=== PATIENT | female | born 1940 | race African-American/Black ===

== ENCOUNTER 2017-04-04 13:46 | Inpatient (IN) | payer MEDICARE, OTHER ==
[~2017-04-04] VITALS: Ht 154.9 cm; Wt 61.2 kg
[~2017-04-04 13:46] MED LIST: AMIO200T PO; BENA40TA3 PO; CARV6.2548 PO; FURO40TA5 PO; HYDR100T26 PO
[2017-04-04] MEDS ORDERED: FUROSEMIDE 40MG/4ML VIAL IV STA (15:47)
[2017-04-04] MEDS ORDERED: NITROGLYCERIN OINT 1GM/INCH UDPKT TD STA (15:47)
[2017-04-04] MEDS ORDERED: ASPIRIN 81MG TABLET PO STA (15:47)
[2017-04-04 16:14] LABS: HEMATOCRIT. 31.6 % (36.0-48.0); HEMOGLOBIN. 10.1 g/dL (12.0-16.0); MEAN CORPUSCULAR HEMOGLOBIN 24.7 pg (28.0-32.0); MEAN CORPUSCULAR VOLUME 77.2 fL (81.0-99.0); MEAN PLATELET VOLUME 7.8 fl (7.4-10.4); PLATELET 312 x1000/uL (130-400); RED BLOOD CELL COUNT 4.09 mill/uL (4.2-5.4); RED CELL DISTRIBUTION WIDTH 21.5 % (11.6-14.6)
[2017-04-04 16:16] LABS: CHLORIDE 107 mEq/L (98-107)
[2017-04-04 16:19] LABS: INR 1.2; PARTIAL THROMBOPLASTIN TIME 28.5 sec (23.4-31.0); PROTHROMBIN TIME 12.8 sec (9.4-11.6)
[2017-04-04 16:26] LABS: CARBON DIOXIDE 27 mEq/L (21-32); TROPONIN I 0.04 ng/mL (0.00-0.04)
[2017-04-04] MEDS ORDERED: POTASSIUM CHLORIDE 20MEQ TABLET SR PO ONE (16:30)
[2017-04-04 16:49] LABS: PLATELET ESTIMATE NORMAL
[2017-04-04] MEDS ORDERED: IPRATROPIUM/ALBUTEROL 0.5-3(2.5)MG/3ML NEB INH PRN (19:30)
[2017-04-04] MEDS ORDERED: ONDANSETRON HCL 4MG/2ML VIAL IV PRN (19:30)
[2017-04-04] MEDS ORDERED: DOCUSATE SODIUM 100MG CAPSULE PO PRN (19:30)
[2017-04-04] MEDS ORDERED: MAGNESIUM/ALUMINUM HYDROXIDE/SIMETHICONE 30ML UDC PO PRN (19:30)
[2017-04-04] MEDS ORDERED: ACETAMINOPHEN 325MG TABLET PO PRN (19:30)
[2017-04-04] MEDS ORDERED: CLONIDINE 0.1MG TABLET PO PRN (19:30)
[2017-04-04] MEDS ORDERED: CLONIDINE 0.1MG TABLET PO ONE (19:45)
[2017-04-04 22:05] VITALS: BP 173/104
[2017-04-04] MEDS ORDERED: ENOXAPARIN 30MG/0.3ML SYR SUBCUT SCH (23:30)
[2017-04-05] VITALS (7 sets, daily range): BP systolic 138–167; BP diastolic 88–98
[2017-04-05 00:31] LABS: CLARITY URINE CLEAR (CLEAR); COLOR URINE YELLOW (YELLOW); GLUCOSE URINE NEGATIVE (NEGATIVE); KETONES URINE NEGATIVE (NEGATIVE); LEUKOCYTE ESTERASE URINE NEGATIVE (NEGATIVE); NITRITE URINE NEGATIVE (NEGATIVE); OCCULT BLOOD URINE NEGATIVE (NEGATIVE); PH URINE 5.5 (4.5-8.0); PROTEIN URINE NEGATIVE (NEGATIVE); UROBILINOGEN URINE 0.2 E.U./dL (0.2-1.0)
[2017-04-05 00:44] LABS: *AMPHETAMINES SCREEN URINE NEGATIVE (NEGATIVE); *BARBITURATES SCREEN URINE NEGATIVE (NEGATIVE); *BENZODIAZEPINES SCREEN URINE NEGATIVE (NEGATIVE); *COCAINE SCREEN URINE NEGATIVE (NEGATIVE); CANNABINOID URINE SCREEN NEGATIVE (NEGATIVE); METHADONE URINE SCREEN NEGATIVE (NEGATIVE); OPIATES URINE SCREEN NEGATIVE (NEGATIVE); PHENCYCLIDINE URINE SCREEN NEGATIVE (NEGATIVE)
[2017-04-05] MEDS ORDERED: APIX2.5T PO (01:15)
[2017-04-05] MEDS ORDERED: ISOS20TA57 PO (01:15)
[2017-04-05] MEDS ORDERED: LEVO25TA7 PO (01:15)
[2017-04-05] MEDS ORDERED: POTA10CA42 PO (01:15)
[2017-04-05] MEDS ORDERED: DEXTROSE 50% WATER 50ML SYRINGE IV PRN (04:15)
[2017-04-05 07:22] LABS: HEMATOCRIT. 28.2 % (36.0-48.0); HEMOGLOBIN. 9.1 g/dL (12.0-16.0); MEAN CORPUSCULAR VOLUME 76.9 fL (81.0-99.0); PLATELET 268 x1000/uL (130-400); RED BLOOD CELL COUNT 3.66 mill/uL (4.2-5.4); RED CELL DISTRIBUTION WIDTH 21.6 % (11.6-14.6)
[2017-04-05] MEDS: INSULIN LISPRO 100 UNITS/ML SUBCUT SCH ×4 (07:50→21:00)
[2017-04-05 07:53] LABS: CREATINE KINASE MB FRACTION 0.9 ng/mL (0.5-3.6); TROPONIN I 0.03 ng/mL (0.00-0.04)
[2017-04-05] MEDS: BLOOD SUGAR DIAGNOSTIC STRIP TEST SCH ×4 (08:11→21:00)
[2017-04-05] MEDS: FUROSEMIDE 40MG/4ML VIAL IV SCH ×2 (08:35→17:34)
[2017-04-05] MEDS ORDERED: POTASSIUM CHLORIDE 20MEQ TABLET SR PO NR (11:30)
[2017-04-05] MEDS: BENAZEPRIL 20MG TABLET PO SCH (12:32)
[2017-04-05] MEDS: AMIODARONE HCL 200 MG TABLET PO SCH (12:33)
[2017-04-05] MEDS: LEVOTHYROXINE SODIUM 25MCG TABLET PO SCH (12:33)
[2017-04-05] MEDS: ISOSORBIDE DINITRATE 20MG TABLET PO SCH ×2 (15:05→17:34)
[2017-04-05] MEDS: HYDRALAZINE HCL 10MG TABLET PO SCH ×2 (15:05→21:10)
[2017-04-05] MEDS: APIXABAN 2.5 MG TABLET PO SCH (17:34)
[2017-04-05 17:45] LABS: PLATELET ESTIMATE NORMAL
[2017-04-05] MEDS: CARVEDILOL 6.25 MG TABLET PO SCH (21:00)
[2017-04-06] VITALS: BP 164/96
[2017-04-06 04:00] VITALS: BP 166/102
[2017-04-06] MEDS: FUROSEMIDE 40MG/4ML VIAL IV SCH ×2 (06:26→18:35)
[2017-04-06] MEDS: LEVOTHYROXINE SODIUM 25MCG TABLET PO SCH (06:27)
[2017-04-06] MEDS: HYDRALAZINE HCL 10MG TABLET PO SCH (06:27)
[2017-04-06] MEDS: BLOOD SUGAR DIAGNOSTIC STRIP TEST SCH ×4 (06:27→21:00)
[2017-04-06 06:51] LABS: BASOPHILS % 0.6 % (0.0-2.0); EOSINOPHILS % 0.5 % (0.0-5.0); HEMATOCRIT. 28.4 % (36.0-48.0); HEMOGLOBIN. 9.2 g/dL (12.0-16.0); LYMPHOCYTES % 13.4 % (20.0-50.0); MEAN CORPUSCULAR HEMOGLOBIN 24.9 pg (28.0-32.0); MEAN PLATELET VOLUME 7.7 fl (7.4-10.4); MONOCYTES % 9.4 % (2.0-8.0); NEUTROPHILS % 76.1 % (40.0-76.0); PLATELET 249 x1000/uL (130-400); RED BLOOD CELL COUNT 3.69 mill/uL (4.2-5.4); RED CELL DISTRIBUTION WIDTH 21.5 % (11.6-14.6)
[2017-04-06] MEDS: INSULIN LISPRO 100 UNITS/ML SUBCUT SCH ×4 (07:50→21:00)
[2017-04-06 08:00] VITALS: BP 155/89
[2017-04-06] MEDS: BENAZEPRIL 20MG TABLET PO SCH (09:00)
[2017-04-06] MEDS: AMIODARONE HCL 200 MG TABLET PO SCH (09:38)
[2017-04-06] MEDS: CARVEDILOL 6.25 MG TABLET PO SCH (09:39)
[2017-04-06] MEDS: APIXABAN 2.5 MG TABLET PO SCH ×2 (09:39→18:35)
[2017-04-06] MEDS: ISOSORBIDE DINITRATE 20MG TABLET PO SCH ×3 (09:39→14:08)
[2017-04-06] MEDS ORDERED: POTASSIUM CHLORIDE 20MEQ TABLET SR PO SCH (12:00)
[2017-04-06 12:57] VITALS: BP 152/91
[2017-04-06] MEDS: AMLODIPINE 2.5MG TABLET PO SCH ×2 (14:08→22:00)
[2017-04-06 16:00] VITALS: BP 147/84
[2017-04-06] MEDS: HYDRALAZINE HCL 100MG TABLET PO SCH ×2 (16:36→21:55)
[2017-04-06 20:00] VITALS: BP 139/82
[2017-04-06] MEDS: CARVEDILOL 3.125 MG TABLET PO SCH (21:00)
[2017-04-07 04:00] VITALS: BP 155/95
[2017-04-07 06:22] LABS: BASOPHILS % 0.3 % (0.0-2.0); EOSINOPHILS % 0.6 % (0.0-5.0); HEMATOCRIT. 27.7 % (36.0-48.0); HEMOGLOBIN. 9.3 g/dL (12.0-16.0); LYMPHOCYTES % 12.7 % (20.0-50.0); MEAN CORPUSCULAR HEMOGLOBIN 25.8 pg (28.0-32.0); MONOCYTES % 8.8 % (2.0-8.0); NEUTROPHILS % 77.6 % (40.0-76.0); PLATELET 249 x1000/uL (130-400); RED CELL DISTRIBUTION WIDTH 21.4 % (11.6-14.6)
[2017-04-07] MEDS: LEVOTHYROXINE SODIUM 25MCG TABLET PO SCH (06:46)
[2017-04-07] MEDS: HYDRALAZINE HCL 100MG TABLET PO SCH ×2 (06:47→14:10)
[2017-04-07] MEDS: FUROSEMIDE 40MG/4ML VIAL IV SCH (06:47)
[2017-04-07] MEDS: BLOOD SUGAR DIAGNOSTIC STRIP TEST SCH ×2 (06:47→12:03)
[2017-04-07 07:07] LABS: PHOSPHORUS 3.1 mg/dL (2.5-4.9)
[2017-04-07] MEDS: INSULIN LISPRO 100 UNITS/ML SUBCUT SCH ×2 (07:50→12:03)
[2017-04-07 08:00] VITALS: BP 159/85
[2017-04-07] MEDS: CARVEDILOL 3.125 MG TABLET PO SCH (09:00)
[2017-04-07] MEDS: ISOSORBIDE DINITRATE 20MG TABLET PO SCH ×2 (09:00→14:09)
[2017-04-07] MEDS: BENAZEPRIL 20MG TABLET PO SCH (09:38)
[2017-04-07] MEDS: AMIODARONE HCL 200 MG TABLET PO SCH (09:39)
[2017-04-07] MEDS: APIXABAN 2.5 MG TABLET PO SCH (09:39)
[2017-04-07] MEDS: AMLODIPINE 2.5MG TABLET PO SCH (09:39)
[2017-04-07] MEDS ORDERED: POTASSIUM CHLORIDE 20MEQ TABLET SR PO SCH (11:00)
[2017-04-07 12:00] VITALS: BP 162/95
[2017-04-07 13:26] LABS: T4 FREE 1.92 ng/dL (0.76-1.46)
[2017-04-07 16:00] VITALS: BP 129/72
[2017-04-07 16:13] VITALS: BP_SYST 129; BP_SYST 163; BP_DIAS 72; BP_DIAS 98
[2017-04-07 16:32] LABS: CREATINE KINASE MB FRACTION 0.8 ng/mL (0.5-3.6); TROPONIN I 0.03 ng/mL (0.00-0.04)
[2017-04-07] MEDS ORDERED: AMLODIPINE 5MG TABLET PO SCH (21:00)
[2017-04-08] MEDS ORDERED: POTASSIUM CHLORIDE 20MEQ TABLET SR PO SCH (09:00)
== END 2017-04-07 17:30 | disposition home or self-care (01) | DRG 291 ==
LOC: ER 14:03 → 6WST 16:40 → EDBEDREQ 19:27 → ENRESERV 20:20
PROVIDERS: ADMIT Internal Medicine; ATTEND Internal Medicine
DX: I13.0 Hypertensive heart and chronic kidney disease with heart failure and stage 1 through stage 4 chronic kidney disease, or unspecified chronic kidney disease (principal); I50.23 Acute on chronic systolic (congestive) heart failure; I42.0 Dilated cardiomyopathy; I48.0 Paroxysmal atrial fibrillation; D64.9 Anemia, unspecified; N18.3 Chronic kidney disease, stage 3 (moderate); E87.6 Hypokalemia; E03.9 Hypothyroidism, unspecified; E78.00 Pure hypercholesterolemia, unspecified; Z79.01 Long term (current) use of anticoagulants; Z79.899 Other long term (current) drug therapy; Z95.810 Presence of automatic (implantable) cardiac defibrillator; Z98.891 History of uterine scar from previous surgery
CPT/HCPCS: 36415; 71010; 80048; 80053; 80061; 80305; 81003; 82550; 82553; 82962; 83036; 83735; 83880; 84100; 84132; 84439; 84443; 84484; 85025; 85379; 85610; 85730; 93005; 93306; 93970; 96374; 99285; J1650; J1815; J1940

== ENCOUNTER 2018-05-16 14:00 | Inpatient (IN) | payer MEDICARE, OTHER ==
[~2018-05-16] VITALS: Ht 154.9 cm; Wt 54.5 kg
[~2018-05-16 14:00] MED LIST changes: +APIX2.5T PO; -BENA40TA3 PO; +BENA40TA9 PO; +ISOS20TA57 PO; +LEVO25TA7 PO; +POTA10CA42 PO
[2018-05-16 15:57] LABS: HEMOGLOBIN. 11.3 g/dL (12.0-16.0); MEAN CORPUSCULAR HEMOGLOBIN 25.9 pg (28.0-32.0); MEAN CORPUSCULAR VOLUME 80.4 fL (81.0-99.0); MEAN PLATELET VOLUME 8.4 fl (7.4-10.4); PLATELET 235 x1000/uL (130-400); RED BLOOD CELL COUNT 4.36 mill/uL (4.2-5.4); RED CELL DISTRIBUTION WIDTH 20.2 % (11.6-14.6)
[2018-05-16 16:00] LABS: CHLORIDE 100 mEq/L (98-107)
[2018-05-16 16:02] LABS: INR 1.2; PARTIAL THROMBOPLASTIN TIME 31.8 sec (23.4-31.0)
[2018-05-16 16:19] LABS: PLATELET ESTIMATE NORMAL
[2018-05-16] MEDS ORDERED: POTASSIUM CHLORIDE 20MEQ TABLET SR PO ONE (16:30)
[2018-05-16] MEDS ORDERED: KCL 20MEQ/100ML PREMIX 100 ML IV ONE (16:30)
[2018-05-16] MEDS ORDERED: ACETAMINOPHEN 325MG TABLET PO PRN (17:30)
[2018-05-16] MEDS ORDERED: CLONIDINE 0.1MG TABLET PO PRN (17:30)
[2018-05-16] MEDS ORDERED: ONDANSETRON HCL 4MG/2ML INJ IV PRN (17:30)
[2018-05-16 20:59] VITALS: BP 159/103
[2018-05-16 21:00] VITALS: BP 159/103
[2018-05-17] VITALS: BP 156/101
[2018-05-17 04:00] VITALS: BP 148/102
[2018-05-17] MEDS: HYDRALAZINE HCL 100MG TABLET PO SCH ×3 (06:30→21:37)
[2018-05-17] MEDS: LEVOTHYROXINE SODIUM 25MCG TABLET PO SCH (06:31)
[2018-05-17 08:06] LABS: HEMATOCRIT. 33.2 % (36.0-48.0); HEMOGLOBIN. 10.6 g/dL (12.0-16.0); MEAN CORPUSCULAR HEMOGLOBIN 25.4 pg (28.0-32.0); MEAN CORPUSCULAR VOLUME 79.4 fL (81.0-99.0); MEAN PLATELET VOLUME 8.3 fl (7.4-10.4); PLATELET 219 x1000/uL (130-400); RED BLOOD CELL COUNT 4.18 mill/uL (4.2-5.4); RED CELL DISTRIBUTION WIDTH 20.2 % (11.6-14.6)
[2018-05-17] MEDS: APIXABAN 2.5 MG TABLET PO SCH ×2 (08:27→17:34)
[2018-05-17] MEDS: AMIODARONE HCL 200 MG TABLET PO SCH ×2 (08:28→17:34)
[2018-05-17] MEDS: POTASSIUM CHLORIDE 10MEQ TABLET SR PO SCH (08:28)
[2018-05-17] MEDS: CARVEDILOL 6.25 MG TABLET PO SCH ×2 (08:28→21:37)
[2018-05-17] MEDS: FUROSEMIDE 40MG TABLET PO SCH (08:28)
[2018-05-17] MEDS: BENAZEPRIL 10MG TABLET PO SCH (08:28)
[2018-05-17] MEDS ORDERED: MEDICATION NOT ON FORMULARY EA (Benazepril Hcl 40 MG) PO SCH (09:00)
[2018-05-17] MEDS ORDERED: MEDICATION NOT ON FORMULARY EA (Furosemide 40 MG) PO SCH (09:00)
[2018-05-17] MEDS: ISOSORBIDE MONONITRATE 20MG TABLET PO SCH ×3 (09:00→17:35)
[2018-05-17] MEDS ORDERED: MEDICATION NOT ON FORMULARY EA (Potassium Chloride 1 CAP) PO SCH (09:00)
[2018-05-17] MEDS ORDERED: ISOSORBIDE MONONITRATE 20MG TABLET PO SCH (09:00)
[2018-05-17] MEDS ORDERED: MEDICATION NOT ON FORMULARY EA (Levothyroxine Sodium 1 TAB) PO SCH (09:00)
[2018-05-17] MEDS ORDERED: MEDICATION NOT ON FORMULARY EA (Hydralazine Hcl 100 MG) PO SCH (09:00)
[2018-05-17] MEDS: POTASSIUM CHLORIDE 20MEQ TABLET SR PO SCH ×2 (11:05→13:26)
[2018-05-17 12:00] VITALS: BP 127/79
[2018-05-17 16:18] VITALS: BP 118/62
[2018-05-17] MEDS ORDERED: DOCUSATE SODIUM 100MG CAPSULE PO SCH (17:00)
[2018-05-17] MEDS: DOCUSATE SODIUM 100MG CAPSULE PO SCH (17:34)
[2018-05-17 19:08] LABS: PLATELET ESTIMATE NORMAL
[2018-05-17 20:00] VITALS: BP 103/69
[2018-05-18] VITALS (7 sets, daily range): BP systolic 107–129; BP diastolic 53–75
[2018-05-18] MEDS ORDERED: NITROGLYCERIN 0.4MG TABLET SL SL PRN (00:15)
[2018-05-18] MEDS: LEVOTHYROXINE SODIUM 25MCG TABLET PO SCH (06:15)
[2018-05-18] MEDS: HYDRALAZINE HCL 100MG TABLET PO SCH ×2 (06:16→13:08)
[2018-05-18] MEDS ORDERED: FUROSEMIDE 40MG/4ML VIAL IVP NR (07:00)
[2018-05-18 07:07] LABS: BASOPHILS % 0.2 % (0.0-2.0); HEMATOCRIT. 30.9 % (36.0-48.0); HEMOGLOBIN. 9.9 g/dL (12.0-16.0); LYMPHOCYTES % 8.9 % (20.0-50.0); MEAN CORPUSCULAR HEMOGLOBIN 25.6 pg (28.0-32.0); MEAN CORPUSCULAR VOLUME 79.7 fL (81.0-99.0); MEAN PLATELET VOLUME 8.7 fl (7.4-10.4); MONOCYTES % 7.5 % (2.0-8.0); NEUTROPHILS % 83.4 % (40.0-76.0); PLATELET 225 x1000/uL (130-400); RED BLOOD CELL COUNT 3.88 mill/uL (4.2-5.4); RED CELL DISTRIBUTION WIDTH 20.3 % (11.6-14.6)
[2018-05-18] MEDS: AMIODARONE HCL 200 MG TABLET PO SCH ×2 (08:42→16:25)
[2018-05-18] MEDS: CARVEDILOL 6.25 MG TABLET PO SCH (08:43)
[2018-05-18] MEDS: POTASSIUM CHLORIDE 10MEQ TABLET SR PO SCH (08:43)
[2018-05-18] MEDS: FUROSEMIDE 40MG TABLET PO SCH (08:43)
[2018-05-18] MEDS: APIXABAN 2.5 MG TABLET PO SCH ×2 (08:43→16:34)
[2018-05-18] MEDS: DOCUSATE SODIUM 100MG CAPSULE PO SCH ×2 (08:43→16:25)
[2018-05-18] MEDS: ISOSORBIDE MONONITRATE 20MG TABLET PO SCH ×3 (08:43→16:34)
[2018-05-18] MEDS: BENAZEPRIL 10MG TABLET PO SCH (08:43)
[2018-05-18] MEDS ORDERED: POTASSIUM CHLORIDE 20MEQ TABLET SR PO NR (12:26)
[2018-05-18] MEDS ORDERED: POTASSIUM CHLORIDE 20MEQ TABLET SR PO ONE (17:45)
== END 2018-05-18 20:10 | disposition short-term general hospital (02) | DRG 201 ==
LOC: ER 14:00 → 8WST 16:29 → EDBEDREQ 16:30 → ENRESERV 18:32
PROVIDERS: ADMIT Internal Medicine; ATTEND Internal Medicine
DX: I47.2 Ventricular tachycardia (principal); G90.8 Other disorders of autonomic nervous system; E44.1 Mild protein-calorie malnutrition; I08.1 Rheumatic disorders of both mitral and tricuspid valves; I27.20 Pulmonary hypertension, unspecified; I42.9 Cardiomyopathy, unspecified; I50.22 Chronic systolic (congestive) heart failure; I13.0 Hypertensive heart and chronic kidney disease with heart failure and stage 1 through stage 4 chronic kidney disease, or unspecified chronic kidney disease; E87.6 Hypokalemia; I48.0 Paroxysmal atrial fibrillation; I49.8 Other specified cardiac arrhythmias; D64.9 Anemia, unspecified; N18.3 Chronic kidney disease, stage 3 (moderate); E03.9 Hypothyroidism, unspecified; M71.22 Synovial cyst of popliteal space [Baker], left knee; S00.81XA Abrasion of other part of head, initial encounter; W22.8XXA Striking against or struck by other objects, initial encounter; Z95.810 Presence of automatic (implantable) cardiac defibrillator; Y93.89 Activity, other specified; Y92.89 Other specified places as the place of occurrence of the external cause; Y99.8 Other external cause status; Z79.01 Long term (current) use of anticoagulants; Z79.899 Other long term (current) drug therapy
CPT/HCPCS: 36415; 71045; 80048; 83735; 83880; 84132; 84484; 93005; 93306; 93970; 96374; 97116; 97162; 97530; 99291; J1940; J2405; J3480; J7050

== ENCOUNTER 2018-09-04 21:03 | Inpatient (IN) | payer MEDICARE, OTHER ==
[~2018-09-04] VITALS: Ht 154.9 cm; Wt 75.7 kg
[2018-09-04 22:36] LABS: INR 1.5; PARTIAL THROMBOPLASTIN TIME 33.5 sec (23.4-31.0); PROTHROMBIN TIME 14.8 sec (9.6-11.0)
[2018-09-04 23:18] LABS: CLARITY URINE CLOUDY (CLEAR); COLOR URINE DARK YELLOW (YELLOW); KETONES URINE NEGATIVE (NEGATIVE); LEUKOCYTE ESTERASE URINE NEGATIVE (NEGATIVE); NITRITE URINE NEGATIVE (NEGATIVE); OCCULT BLOOD URINE NEGATIVE (NEGATIVE); PROTEIN URINE TRACE (NEGATIVE); SPECIFIC GRAVITY URINE 1.013 (1.005-1.030)
[2018-09-04 23:38] LABS: HEMATOCRIT. 36.2 % (36.0-48.0); HEMOGLOBIN. 11.5 g/dL (12.0-16.0); MEAN CORPUSCULAR HEMOGLOBIN 28.3 pg (28.0-32.0); MEAN CORPUSCULAR VOLUME 89.1 fL (81.0-99.0); MEAN PLATELET VOLUME 8.1 fl (7.4-10.4); PLATELET 210 x1000/uL (130-400); RED BLOOD CELL COUNT 4.06 mill/uL (4.2-5.4); RED CELL DISTRIBUTION WIDTH 17.7 % (11.6-14.6)
[2018-09-04 23:43] LABS: CHLORIDE 110 mEq/L (98-107)
[2018-09-05] VITALS (9 sets, daily range): BP systolic 79–108; BP diastolic 52–67
[2018-09-05 00:49] LABS: NUCLEATED RED BLOOD CELLS 2 /100 WBC; PLATELET ESTIMATE NORMAL
[2018-09-05 08:38] LABS: HEMATOCRIT. 36.6 % (36.0-48.0); HEMOGLOBIN. 11.4 g/dL (12.0-16.0); MEAN CORPUSCULAR HEMOGLOBIN 27.8 pg (28.0-32.0); MEAN CORPUSCULAR VOLUME 89.4 fL (81.0-99.0); MEAN PLATELET VOLUME 8.3 fl (7.4-10.4); PLATELET 189 x1000/uL (130-400); RED CELL DISTRIBUTION WIDTH 17.7 % (11.6-14.6)
[2018-09-05 09:10] LABS: CHLORIDE 110 mEq/L (98-107)
[2018-09-05 09:27] LABS: CREATINE KINASE 62 IU/L (26-192)
[2018-09-05 09:28] LABS: CREATINE KINASE MB FRACTION 2.4 ng/mL (0.5-3.6)
[2018-09-05 11:45] LABS: NUCLEATED RED BLOOD CELLS 2 /100 WBC; PLATELET ESTIMATE NORMAL
[2018-09-05 15:56] LABS: CREATINE KINASE MB FRACTION 2.3 ng/mL (0.5-3.6)
[2018-09-05] MEDS ORDERED: LEVOTHYROXINE SODIUM 25MCG TABLET PO NR (17:00)
[2018-09-05] MEDS ORDERED: APIXABAN 2.5 MG TABLET PO SCH (17:00)
[2018-09-05] MEDS ORDERED: SODIUM CHLORIDE 0.9% 1,000 ML IV SCH ×2 (17:15)
[2018-09-05] MEDS: AMIODARONE HCL 200 MG TABLET PO SCH (19:17)
[2018-09-05] MEDS: SODIUM CHLORIDE 0.9% 1,000 ML IV SCH (19:19)
[2018-09-06] VITALS (13 sets, daily range): BP systolic 81–108; BP diastolic 45–96
[2018-09-06] MEDS: IPRATROPIUM/ALBUTEROL 0.5-3(2.5)MG/3ML NEB HHN SCH ×5 (04:24→20:47)
[2018-09-06 09:01] LABS: HEMATOCRIT. 34.9 % (36.0-48.0); HEMOGLOBIN. 10.8 g/dL (12.0-16.0); MEAN CORPUSCULAR HEMOGLOBIN 27.8 pg (28.0-32.0); MEAN CORPUSCULAR VOLUME 89.7 fL (81.0-99.0); MEAN PLATELET VOLUME 7.9 fl (7.4-10.4); PLATELET 182 x1000/uL (130-400); RED BLOOD CELL COUNT 3.89 mill/uL (4.2-5.4); RED CELL DISTRIBUTION WIDTH 17.9 % (11.6-14.6)
[2018-09-06] MEDS: AMIODARONE HCL 200 MG TABLET PO SCH ×2 (09:04→17:10)
[2018-09-06] MEDS: SODIUM CHLORIDE 0.9% 1,000 ML IV SCH (09:06)
[2018-09-06 09:08] LABS: CHLORIDE 114 mEq/L (98-107)
[2018-09-06 09:37] LABS: NUCLEATED RED BLOOD CELLS 1 /100 WBC; PLATELET ESTIMATE NORMAL
[2018-09-06] MEDS ORDERED: DEXTROSE 5% WATER 1,000 ML IV SCH (13:00)
[2018-09-06 13:06] LABS: FOLIC ACID (FOLATE) SERUM 16.2 ng/mL (>5.38)
[2018-09-06] MEDS ORDERED: SODIUM CHLORIDE 0.9% 1000ML BAG (SEPSIS BOLUS) IV ONE (13:45)
[2018-09-06] MEDS ORDERED: SODIUM CHLORIDE 0.9% 250 ML IV NR (14:32)
[2018-09-06] MEDS: DEXT 5%/0.9% NACL 1,000 ML IV SCH (17:11)
[2018-09-06 19:29] LABS: CLARITY URINE TURBID (CLEAR); COLOR URINE RED (YELLOW); KETONES URINE 4+ (NEGATIVE); LEUKOCYTE ESTERASE URINE 3+ (NEGATIVE); NITRITE URINE POSITIVE (NEGATIVE); OCCULT BLOOD URINE 3+ (NEGATIVE); PROTEIN URINE 4+ (NEGATIVE)
[2018-09-06 20:24] LABS: *AMPHETAMINES SCREEN URINE NEGATIVE (NEGATIVE); *BARBITURATES SCREEN URINE NEGATIVE (NEGATIVE); *BENZODIAZEPINES SCREEN URINE NEGATIVE (NEGATIVE); *COCAINE SCREEN URINE NEGATIVE (NEGATIVE)
[2018-09-06 20:25] LABS: CANNABINOID URINE SCREEN NEGATIVE (NEGATIVE); METHADONE URINE SCREEN NEGATIVE (NEGATIVE); OPIATES URINE SCREEN NEGATIVE (NEGATIVE); PHENCYCLIDINE URINE SCREEN NEGATIVE (NEGATIVE)
[2018-09-07] VITALS (79 sets, daily range): BP systolic 35–160; BP diastolic 13–109
[2018-09-07] MEDS: IPRATROPIUM/ALBUTEROL 0.5-3(2.5)MG/3ML NEB HHN SCH ×6 (00:20→20:45)
[2018-09-07] MEDS: DEXT 5%/0.9% NACL 1,000 ML IV SCH ×2 (05:30→20:30)
[2018-09-07 07:23] LABS: HEMATOCRIT. 36.1 % (36.0-48.0); HEMOGLOBIN. 11.1 g/dL (12.0-16.0); MEAN CORPUSCULAR HEMOGLOBIN 27.8 pg (28.0-32.0); MEAN CORPUSCULAR VOLUME 90.4 fL (81.0-99.0); MEAN PLATELET VOLUME 8.4 fl (7.4-10.4); PLATELET 166 x1000/uL (130-400); RED BLOOD CELL COUNT 3.99 mill/uL (4.2-5.4); RED CELL DISTRIBUTION WIDTH 17.4 % (11.6-14.6)
[2018-09-07 07:42] LABS: PHOSPHORUS 5.7 mg/dL (2.5-4.9)
[2018-09-07 07:46] LABS: T4 FREE 1.27 ng/dL (0.76-1.46)
[2018-09-07] MEDS: AMIODARONE HCL 200 MG TABLET PO SCH ×2 (08:27→17:00)
[2018-09-07 09:48] LABS: PLATELET ESTIMATE NORMAL
[2018-09-07] MEDS: LEVOTHYROXINE SODIUM 25MCG TABLET PO SCH (11:37)
[2018-09-07 12:37] LABS: INR 1.3; PROTHROMBIN TIME 13.4 sec (9.6-11.0)
[2018-09-07] MEDS ORDERED: LIDOCAINE HCL 1% 20ML VIAL (Pyxis) INJ ONE (13:11)
[2018-09-07 13:52] LABS: HEPATITIS B SURFACE ANTIGEN NEGATIVE
[2018-09-07 14:22] LABS: HEPATITIS A AB IGM NEGATIVE (NEGATIVE)
[2018-09-07] MEDS ORDERED: NOREPINEPHRINE 8 MG in DEXT 5% WATER 242 ML IV PRN (14:30)
[2018-09-07] MEDS ORDERED: PROPOFOL 10MG/ML 100ML 100 ML IV PRN (14:30)
[2018-09-07 14:40] LABS: BG BASE EXCESS -6.9 mmol/L (-2.0-2.0); BG CARBOXYHEMOGLOBIN 0.9 % (0.5-1.5); BG DEOXYHEMOGLOBIN 8.3 % (0.0-5.0); BG HCO3 ACT 19.3 mmol/L (22.0-26.0); BG METHEMOGLOBIN 0.1 % (0.0-1.5); BG OXYGEN SATURATION 91.6 % (92.0-98.5); BG OXYHEMOGLOBIN 90.7 % (94.0-97.0); BG PCO2 41.1 mmHg (35.0-45.0); BG PH 7.289 (7.350-7.450); BG PO2 64.9 mmHg (75.0-100.0); BG SAMPLE SITE RIGHT BRACHIAL; BG TIDAL VOLUME(mL) 500 mL; BG VENT MODE VENT - A/C; BG VENT RATE 18 set
[2018-09-07] MEDS ORDERED: ALBUMIN HUMAN 25GM/100ML (25%) IV SCH (14:45)
[2018-09-07] MEDS ORDERED: MIDAZOLAM HCL 2 MG/2 ML VIAL IV NR (14:45)
[2018-09-07] MEDS ORDERED: MIDAZOLAM HCL 2 MG/2 ML VIAL ONE (14:54)
[2018-09-07] MEDS: LACTULOSE 20G/30ML UDC PO SCH ×2 (15:00→22:00)
[2018-09-07] MEDS ORDERED: FENTANYL CITRATE/PF 50MCG/ML 2ML VIAL IV SCH (15:00)
[2018-09-07] MEDS ORDERED: IPRATROPIUM/ALBUTEROL 0.5-3(2.5)MG/3ML NEB HHN PRN (15:00)
[2018-09-07] MEDS ORDERED: PHENYLEPHRINE HCL 10 MG/ML 1ML (IV VIAL) IV ONE (15:09)
[2018-09-07 15:15] LABS: INR 1.4; PROTHROMBIN TIME 14.3 sec (9.6-11.0)
[2018-09-07 15:35] LABS: BASOPHILS % 0.3 % (0.0-2.0); EOSINOPHILS % 0.2 % (0.0-5.0); HEMOGLOBIN. 10.9 g/dL (12.0-16.0); LYMPHOCYTES % 7.3 % (20.0-50.0); MEAN CORPUSCULAR HEMOGLOBIN 28.3 pg (28.0-32.0); MEAN CORPUSCULAR VOLUME 90.6 fL (81.0-99.0); MEAN PLATELET VOLUME 8.9 fl (7.4-10.4); NEUTROPHILS % 89.2 % (40.0-76.0); PLATELET 138 x1000/uL (130-400); RED BLOOD CELL COUNT 3.87 mill/uL (4.2-5.4); RED CELL DISTRIBUTION WIDTH 17.7 % (11.6-14.6)
[2018-09-07] MEDS ORDERED: EPINEPHRINE 0.1MG/ML (1:10,000) 10ML SYR ONE (15:50)
[2018-09-07] MEDS ORDERED: DEXTROSE 50% WATER 50ML SYRINGE IV ONE (15:50)
[2018-09-07] MEDS ORDERED: ATROPINE SULFATE 1MG/10ML SYR ONE (15:50)
[2018-09-07] MEDS ORDERED: AMIODARONE HCL 50MG/ML 3ML VIAL IV ONE (15:50)
[2018-09-07] MEDS ORDERED: CALCIUM CHLORIDE 1GM/10ML SYR IV ONE (15:50)
[2018-09-07] MEDS ORDERED: LIDOCAINE HCL 2% 5ML SYRINGE IV ONE (15:50)
[2018-09-07] MEDS ORDERED: SODIUM BICARBONATE 7.5% 0.9 MEQ/ML 50ML SYR IV ONE (15:50)
[2018-09-07] MEDS ORDERED: IPRATROPIUM/ALBUTEROL 0.5-3(2.5)MG/3ML NEB HHN SCH (16:00)
[2018-09-07] MEDS ORDERED: CEFEPIME 1,000 MG in DEXTROSE 5% WATER 50 ML IV SCH (16:00)
[2018-09-07] MEDS ORDERED: AMIODARONE HCL 900 MG in DEXT 5% WATER 482 ML IV SCH (17:00)
[2018-09-07] MEDS ORDERED: VANCOMYCIN 1500MG in DEXTROSE 5% WATER 250ML IV SCH (17:00)
[2018-09-07] MEDS ORDERED: PHENYLEPHRINE 40 MG in DEXT 5% WATER 246 ML IV PRN (17:00)
[2018-09-07 17:12] LABS: BG BASE EXCESS -9.2 mmol/L (-2.0-2.0); BG CARBOXYHEMOGLOBIN 0.5 % (0.5-1.5); BG DEOXYHEMOGLOBIN 28.1 % (0.0-5.0); BG HCO3 ACT 20.1 mmol/L (22.0-26.0); BG METHEMOGLOBIN 0.3 % (0.0-1.5); BG OXYGEN SATURATION 71.7 % (92.0-98.5); BG OXYHEMOGLOBIN 71.1 % (94.0-97.0); BG PH 7.151 (7.350-7.450); BG PO2 45.5 mmHg (75.0-100.0); BG SAMPLE SITE RIGHT RADIAL; BG TIDAL VOLUME(mL) 500 mL; BG TOTAL HEMOGLOBIN 12.9 g/dL (12.0-18.0); BG VENT MODE VENT - A/C; BG VENT RATE 18 set
[2018-09-07] MEDS ORDERED: SODIUM BICARBONATE 150 MEQ in DEXTROSE 5% WATER 1,000 ML IV SCH ×3 (19:00)
[2018-09-07] MEDS ORDERED: PHENYLEPHRINE 80 MG in DEXT 5% WATER 492 ML IV PRN (19:02)
[2018-09-07] MEDS: NOREPINEPHRINE 32 MG in DEXT 5% WATER 468 ML IV PRN (19:03)
[2018-09-07] MEDS: VASOPRESSIN 10 UNIT in SODIUM CHLORIDE 0.9% 99.5 ML IV PRN (19:05)
[2018-09-07] MEDS: PHENYLEPHRINE 80 MG in DEXT 5% WATER 492 ML IV PRN (21:55)
[2018-09-08] VITALS (68 sets, daily range): BP systolic 54–137; BP diastolic 30–97
[2018-09-08] MEDS: IPRATROPIUM/ALBUTEROL 0.5-3(2.5)MG/3ML NEB HHN SCH ×2 (00:20→08:30)
[2018-09-08] MEDS: PHENYLEPHRINE 80 MG in DEXT 5% WATER 492 ML IV PRN ×2 (00:57→08:45)
[2018-09-08] MEDS: VASOPRESSIN 10 UNIT in SODIUM CHLORIDE 0.9% 99.5 ML IV PRN ×2 (01:07→04:44)
[2018-09-08 04:56] LABS: HEMATOCRIT. 39.4 % (36.0-48.0); HEMOGLOBIN. 12.5 g/dL (12.0-16.0); MEAN CORPUSCULAR HEMOGLOBIN 28.5 pg (28.0-32.0); MEAN CORPUSCULAR VOLUME 89.9 fL (81.0-99.0); MEAN PLATELET VOLUME 7.8 fl (7.4-10.4); PLATELET 103 x1000/uL (130-400); RED BLOOD CELL COUNT 4.38 mill/uL (4.2-5.4); RED CELL DISTRIBUTION WIDTH 17.9 % (11.6-14.6)
[2018-09-08] MEDS ORDERED: EPINEPHRINE 1 MG in SODIUM CHLORIDE 0.9% 249 ML IV PRN (05:00)
[2018-09-08 05:10] LABS: PHOSPHORUS 4.7 mg/dL (2.5-4.9)
[2018-09-08 05:20] LABS: BG BASE EXCESS -9.4 mmol/L (-2.0-2.0); BG CARBOXYHEMOGLOBIN 1.6 % (0.5-1.5); BG DEOXYHEMOGLOBIN 21.4 % (0.0-5.0); BG FRACTION INSPIRED OXYGEN 100; BG HCO3 ACT 16.3 mmol/L (22.0-26.0); BG METHEMOGLOBIN 0.2 % (0.0-1.5); BG OXYGEN SATURATION 78.2 % (92.0-98.5); BG OXYHEMOGLOBIN 76.8 % (94.0-97.0); BG PH 7.285 (7.350-7.450); BG PO2 47.2 mmHg (75.0-100.0); BG SAMPLE SITE RIGHT RADIAL; BG TIDAL VOLUME(mL) 500 mL; BG TOTAL HEMOGLOBIN 13.4 g/dL (12.0-18.0); BG VENT MODE VENT - A/C; BG VENT RATE 24 set
[2018-09-08] MEDS: LACTULOSE 20G/30ML UDC PO SCH (06:00)
[2018-09-08] MEDS: NOREPINEPHRINE 32 MG in DEXT 5% WATER 468 ML IV PRN (08:45)
[2018-09-08 08:51] LABS: BG BASE EXCESS -8.1 mmol/L (-2.0-2.0); BG CARBOXYHEMOGLOBIN 1.5 % (0.5-1.5); BG DEOXYHEMOGLOBIN 11.2 % (0.0-5.0); BG FRACTION INSPIRED OXYGEN 100; BG HCO3 ACT 16.2 mmol/L (22.0-26.0); BG OXYGEN SATURATION 88.6 % (92.0-98.5); BG OXYHEMOGLOBIN 87.3 % (94.0-97.0); BG PCO2 30.3 mmHg (35.0-45.0); BG PH 7.347 (7.350-7.450); BG PO2 59.3 mmHg (75.0-100.0); BG SAMPLE SITE LEFT RADIAL; BG TIDAL VOLUME(mL) 500 mL; BG VENT MODE VENT - A/C; BG VENT RATE 30 set
[2018-09-08] MEDS: AMIODARONE HCL 200 MG TABLET PO SCH (08:59)
[2018-09-08] MEDS: LEVOTHYROXINE SODIUM 25MCG TABLET PO SCH (08:59)
[2018-09-08] MEDS ORDERED: EPINEPHRINE 4 MG in SODIUM CHLORIDE 0.9% 246 ML IV PRN (09:00)
[2018-09-08 09:41] LABS: NUCLEATED RED BLOOD CELLS 34 /100 WBC; PLATELET ESTIMATE DECREASED
[2018-09-08] MEDS ORDERED: MORPHINE SULFATE 250 MG in DEXT 5% WATER 240 ML IV PRN (09:45)
[2018-09-08] MEDS ORDERED: HEPARIN 25,000 UNITS PREMIX 500 ML IV SCH (10:45)
== END 2018-09-08 11:31 | disposition expired | DRG 194 ==
LOC: ER 21:03 → 7WST 23:55 → EDBEDREQSVC 23:59 → EDBEDREQTM 23:59 → EDBEDREQ 23:59 → ENRESERV 09-05 02:10 → 3WST 09-05 22:54 → CVICU 09-07 14:30
PROVIDERS: ADMIT Internal Medicine; ATTEND Internal Medicine
PROC: 5A12012 Performance of Cardiac Output, Single, Manual (ICD-10-PCS; principal; 2018-09-07)
PROC: 5A1935Z Respiratory Ventilation, Less than 24 Consecutive Hours (ICD-10-PCS; 2018-09-07)
PROC: 02HV33Z Insertion of Infusion Device into Superior Vena Cava, Percutaneous Approach (ICD-10-PCS; 2018-09-07)
PROC: B548ZZA Ultrasonography of Superior Vena Cava, Guidance (ICD-10-PCS; 2018-09-07)
PROC: 5A2204Z Restoration of Cardiac Rhythm, Single (ICD-10-PCS; 2018-09-07)
PROC: 5A12012 Performance of Cardiac Output, Single, Manual (ICD-10-PCS; 2018-09-07)
PROC: 0BH17EZ Insertion of Endotracheal Airway into Trachea, Via Natural or Artificial Opening (ICD-10-PCS; 2018-09-07)
PROC: 5A1D70Z Performance of Urinary Filtration, Intermittent, Less than 6 Hours Per Day (ICD-10-PCS; 2018-09-07)
DX: I13.2 Hypertensive heart and chronic kidney disease with heart failure and with stage 5 chronic kidney disease, or end stage renal disease (principal); J96.01 Acute respiratory failure with hypoxia; R57.0 Cardiogenic shock; E43 Unspecified severe protein-calorie malnutrition; G92 Toxic encephalopathy; J18.9 Pneumonia, unspecified organism; N17.9 Acute kidney failure, unspecified; D68.9 Coagulation defect, unspecified; D69.6 Thrombocytopenia, unspecified; I95.9 Hypotension, unspecified; I50.23 Acute on chronic systolic (congestive) heart failure; I31.3 Pericardial effusion (noninflammatory); I42.9 Cardiomyopathy, unspecified; R00.1 Bradycardia, unspecified; E03.9 Hypothyroidism, unspecified; Z95.810 Presence of automatic (implantable) cardiac defibrillator; D63.8 Anemia in other chronic diseases classified elsewhere; E86.9 Volume depletion, unspecified; E87.2 Acidosis; I08.1 Rheumatic disorders of both mitral and tricuspid valves; I25.10 Atherosclerotic heart disease of native coronary artery without angina pectoris; I27.20 Pulmonary hypertension, unspecified; I45.81 Long QT syndrome; I48.91 Unspecified atrial fibrillation; K76.9 Liver disease, unspecified; S70.321A Blister (nonthermal), right thigh, initial encounter; X58.XXXA Exposure to other specified factors, initial encounter; N18.6 End stage renal disease; E83.39 Other disorders of phosphorus metabolism; Z51.5 Encounter for palliative care; N28.1 Cyst of kidney, acquired; N39.0 Urinary tract infection, site not specified; R18.8 Other ascites; Z79.01 Long term (current) use of anticoagulants; Z79.899 Other long term (current) drug therapy; Z99.2 Dependence on renal dialysis; Y93.89 Activity, other specified; Y92.89 Other specified places as the place of occurrence of the external cause; Y99.8 Other external cause status; Z68.31 Body mass index [BMI] 31.0-31.9, adult
CPT/HCPCS: 36415; 36556; 36600; 51702; 71045; 76700; 76937; 80048; 80061; 80076; 80305; 80307; 82040; 82140; 82248; 82375; 82550; 82553; 82607; 82746; 82805; 82962; 83036; 83605; 83735; 83880; 84100; 84134; 84145; 84439; 84443; 84478; 84481; 84484; 84550; 85379; 86703; 86705; 86709; 86803; 87070; 87340; 93005; 93306; 93971; 97162; 97166; 99285; C1752; J0282; J0461; J0692; J2250; J2274; J2370; J2704; J3010; J3370; J3490; J7030; J7040; J7042; J7050; J7060; J7070; J7620; P9047; A4315